=== PATIENT | female | born 1970 | race Hispanic/Latino ===

== ENCOUNTER 2018-01-05 14:17 | Emergency (ER) | payer BC ==
[2018-01-05 14:25] VITALS: BP 136/85; PULSE 68; RESP 18; TEMP 97.9; O2SAT 98; BMI 36.6
--- NOTE | 2018-01-05 15:02 | ED PDOC ---
Arrival/HPI - General Chief Complaint: Dizziness/Lightheaded Time Seen by Provider: 01/05/18 14:34 Historian: Patient - History of Present Illness Narrative History of Present Illness (Text): you were treated in the ED today for having dizziness/room spinning for about 1 week but otherwise without any nausea/vomiting/headache/current dizziness/ difficulty breathing/chest pain/abdomen pain/numbness/tingling/loss of limb function/pain with urination. 01/05/18 15:00 Time/Duration: 1 week Symptom Onset: Gradual Symptom Course: Unchanged, Resolved, Intermittent Quality: Other (no pain) Activities at Onset: Rest Context: Sitting Past Medical History - Provider Review Nursing Documentation Reviewed: Yes - Travel History Have you recently traveled outside [place] w/in the past 3 mons?: No - Infectious Disease Hx of Infectious Diseases: None - Reproductive Menopause: No - Cardiac Hx Cardiac Disorders: No - Pulmonary Hx Asthma: Yes - Neurological Hx Neurological Disorder: No - HEENT Hx HEENT Disorder: No - Renal Hx Renal Disorder: No - Endocrine/Metabolic Hx Endocrine Disorders: No - Hematological/Oncological Hx Blood Disorders: No - Integumentary Hx Dermatological Disorder: No - Musculoskeletal/Rheumatological Hx Musculoskeletal Disorders: No - Gastrointestinal Hx Gastrointestinal Disorders: No - Genitourinary/Gynecological Hx Genitourinary Disorders: No - Psychiatric Hx Psychophysiologic Disorder: Yes Hx Anxiety: Yes Hx Depression: Yes Hx Substance Use: No - Anesthesia Hx Anesthesia: Yes Hx Anesthesia Reactions: No Family/Social History - Physician Review Nursing Documentation Reviewed: Yes Family/Social History: No Known Family HX Smoking Status: Never Smoked Hx Alcohol Use: No Hx Substance Use: No Allergies/Home Meds Allergies/Adverse Reactions: Allergies No Known Allergies Allergy (Verified 01/05/18 14:49) Home Medications: Home Meds Medication Instructions Recorded Confirmed ALPRAZolam [Xanax] 1 mg PO PRN PRN 11/01/15 01/05/18 Citalopram Hydrobromide [Celexa] 40 mg PO DAILY 11/01/15 01/05/18 traZODone [Desyrel] 50 mg PO HS 11/01/15 01/05/18 Beclomethasone Dipropionate [Qvar 0 gm IH PRN PRN 01/05/18 01/05/18 Redihaler] Tiotropium Br/Olodaterol HCl 0 mg IH PRN PRN 01/05/18 01/05/18 [Stiolto Respimat Inhal [place]] Review of Systems - Review of Systems Constitutional: Normal Eyes: Normal Cardiovascular: Normal Gastrointestinal: Normal Genitourinary Female: Normal Musculoskeletal: Normal Skin: Normal Neurological: Dizziness Endocrine: Normal Hemo/Lymphatic: Normal Psychiatric: Normal Physical Exam Vital Signs Reviewed: Yes Vital Signs Temp Pulse Resp BP Pulse Ox 01/05/18 14:23 97.9 F 68 18 136/85 98 Temperature: Afebrile Blood Pressure: Hypertensive Pulse: Regular Respiratory Rate: Normal Appearance: Positive for: Well-Appearing, Non-Toxic, Comfortable Pain Distress: None Mental Status: Positive for: Alert and Oriented X 3 Finger Stick Blood Glucose: 107 - Systems Exam Head: Present: Atraumatic, Normocephalic Pupils: Present: PERRL Extroacular Muscles: Present: EOMI Conjunctiva: Present: Normal Ears: Present: Normal Mouth: Present: Moist Mucous Membranes Pharnyx: Present: Normal Nose (External): Present: Atraumatic Nose (Internal): Present: Normal Inspection Neck: Present: Normal Range of Motion Respiratory/Chest: Present: Clear to Auscultation, Good Air Exchange Cardiovascular: Present: Regular Rate and Rhythm Abdomen: No: Tenderness, Distention, Normal Bowel Sounds, Peritoneal Signs, Rebound, Guarding, McBurney's Point Tender, Rovsing's Sign Present, Hernias, Feeding Tubes, Ostomy Tubes, Mass/Organomegaly, Scars, Other Back: Present: Normal Inspection Upper Extremity: Present: Normal Inspection Lower Extremity: Present: Normal Inspection Neurological: Present: GCS=15, CN II-XII Intact, Speech Normal, Motor Func Grossly Intact Skin: Present: Warm, Normal Color Psychiatric: Present: Alert, Oriented x 3, Normal Insight, Normal Concentration Medical Decision Making ED Course and Treatment: 01/05/18 15:02 you were treated in the ED today for having dizziness/room spinning for about 1 week but otherwise without any nausea/vomiting/headache/current dizziness/ difficulty breathing/chest pain/abdomen pain/numbness/tingling/loss of limb function/pain with urination. You were otherwise breathing easily, smiling and talking with your friend, good strength/sensation, walking easily, clear lungs, no abdomen tenderness, no fever temp 97.9, stable heart rate 68, stable breathing rate 136/85, excellent oxygen level 98% room air, elevated blood pressure 136/85 which we recommend repeat in 2-3 days primary care office to determine further treatment, you have blood tests no infection count 7, stable blood level hemoglobin 14/platelets 306, stable chemistry, heart blood test negative less than 0.01, urine test negative for sign of infection, urine test negative, radiology ct head no acute findings, ECG normal sinus rhythm, meclizine, observation done in the ED with improvement, had a long conversation regarding staying in the hospital for further observation/testing but you refused and cautioned for complications/ but you stated you feel improved and wanted to followup with your primary care, counselled to monitor symptoms and thus discharged home with friend. 1. Recommend meclizine as directed for dizziness 2. Recommend follow-up primary care 2-3 days to review symptoms, referral to neurology, ear nose throat and cardiology to review your symptoms, referral to gastroenterology clinic for lab liver test mild elevation ALT 61 to ensure no complications. 4. If any worsening pain, fever, chills, nausea, vomiting, difficulty breathing, numbness, loss of limb function, pain with urination or any medical condition then return to the ED. 01/05/18 16:52 Reassessment Condition: Re-examined, Improved - Lab Interpretations Lab Results: 01/05/18 15:19 01/05/18 15:19 Lab Results 01/05/18 15:19: Sodium 140, Potassium 4.4, Chloride 105, Carbon Dioxide 28, Anion Gap 12, BUN 10, Creatinine 0.8, Est GFR ( Amer) > 60, Est GFR (Non- Af Amer) > 60, Random Glucose 112 H, Calcium 9.6, Magnesium 2.2, Total Bilirubin 0.2, AST 36, ALT 61 H, Alkaline Phosphatase 73, Lactate Dehydrogenase 520, Total Creatine Kinase 61, Troponin I < 0.01, Total Protein 7.6, Albumin 4.3 , Globulin 3.3, Albumin/Globulin Ratio 1.3 01/05/18 15:19: Urine Color Yellow, Urine Appearance Clear, Urine pH 7.0, Ur Specific [place] 1.010, Urine Protein Negative, Urine Glucose (UA) Negative, Urine Ketones Negative, Urine Blood Trace-intact H, Urine Nitrate Negative, Urine Bilirubin Negative, Urine Urobilinogen 0.2, Ur Leukocyte Esterase Negative , Urine RBC 0 - 2, Urine WBC Negative, Ur Epithelial Cells 0 - 2, Urine Bacteria Trace 01/05/18 15:19: PT 11.7, INR 1.03, APTT 33.3 01/05/18 15:19: WBC 7.0 D, RBC 4.99, Hgb 14.3, Hct 42.5, MCV 85.2, MCH 28.7, MCHC 33.6, RDW 13.7, Plt Count 306, MPV 9.3, Gran % 68.9 H, Lymph % (Auto) 21.9 L, [place] % (Auto) 5.8, Eos % (Auto) 3.0, Baso % (Auto) 0.4, Gran # 4.83, Lymph # (Auto) 1.5, [place] # (Auto) 0.4, Eos # (Auto) 0.2, Baso # (Auto) 0.03 I have reviewed the lab results: Yes - RAD Interpretation Radiology Orders: 01/05/18 14:57 HEAD W/O CONTRAST [CT] Stat [employer]: Radiologist (ct head no acute findings) - Medication Orders Current Medication Orders: Discontinued Medications Meclizine HCl (Antivert) 50 mg PO STAT STA Stop: 01/05/18 14:59 Last Admin: 01/05/18 15:35 Dose: 50 mg NIHSS Stroke Scale 3 - Date/Time Evaluation Performed Date Performed: 01/05/18 When Was NIHSS Performed: Baseline - How Severe is the Stroke Level of Consciousness: 0=Alert LOC to Questions: 0=Both comments correct LOC to commands: 0=Obeys both correctly Best Gaze: 0=Normal Visual: 0=No visual loss Facial: 0=Normal Motor Arm - Left: 0=No drift Motor Arm - Right: 0=No drift Motor Leg - Left: 0=No drift Motor Leg - Right: 0=No drift Limb Ataxia: 0=Absent Sensory: 0=Normal Best Language: 0=No aphasia Dysarthia: 0=Normal articulation Extinction & Inattention (Neglect): 0=Normal, no object Score: 0 Disposition/Present on Arrival - Present on Arrival Any Indicators Present on Arrival: No History of DVT/PE: No History of Uncontrolled Diabetes: No Urinary Catheter: No History of Decub. Ulcer: No History Surgical Site Infection Following: None - Disposition Have Diagnosis and Disposition been Completed?: Yes Diagnosis: Dizziness, Vertigo Disposition: HOME/ ROUTINE Disposition Time: 16:54 Patient Plan: Discharge Condition: IMPROVED Discharge Instructions (ExitCare): Vertigo (a Type of Dizziness) (DC) Additional Instructions: you were treated in the ED today for having dizziness/room spinning for about 1 week but otherwise without any nausea/vomiting/headache/current dizziness/ difficulty breathing/chest pain/abdomen pain/numbness/tingling/loss of limb function/pain with urination. You were otherwise breathing easily, smiling and talking with your friend, good strength/sensation, walking easily, clear lungs, no abdomen tenderness, no fever temp 97.9, stable heart rate 68, stable breathing rate 136/85, excellent oxygen level 98% room air, elevated blood pressure 136/85 which we recommend repeat in 2-3 days primary care office to determine further treatment, you have blood tests no infection count 7, stable blood level hemoglobin 14/platelets 306, stable chemistry, heart blood test negative less than 0.01, urine test negative for sign of infection, urine test negative, radiology ct head no acute findings, ECG normal sinus rhythm, meclizine, observation done in the ED with improvement, had a long conversation regarding staying in the hospital for further observation/testing but you refused and cautioned for complications/ but you stated you feel improved and wanted to followup with your primary care, counselled to monitor symptoms and thus discharged home with friend. 1. Recommend meclizine as directed for dizziness and don't work/drive/drink alcohol when using. 2. Recommend follow-up primary care 2-3 days to review symptoms, referral to neurology, ear nose throat and cardiology to review your symptoms, referral to gastroenterology clinic for lab liver test mild elevation ALT 61 to ensure no complications. 4. If any worsening pain, fever, chills, nausea, vomiting, difficulty breathing, numbness, loss of limb function, pain with urination or any medical condition then return to the ED. Prescriptions: Meclizine [Antivert] 12.5 mg PO DAILY PRN 12 Days #12 tab PRN Reason: Dizziness Referrals: Nilda Henson MD [Primary Care Provider] - Follow up with primary Forms: [employer] (Khmer)
[2018-01-05 15:52] LABS: BASO # 0.03 K/mm3 (0.0-2.0); BASO % 0.4 % (0.0-3.0); EOS # 0.2 (0.0-0.7); GRAN # 4.83 (1.4-6.5); GRAN % 68.9 % (50.0-68.0); HEMOGLOBIN 14.3 g/dL (12.0-16.0); LYMPH # 1.5 (1.2-3.4); LYMPH % 21.9 % (22.0-35.0); MEAN CELL VOLUME 85.2 fl (80.0-105.0); MEAN CORPUSCULAR HEMOGLOBIN 28.7 pg (25.0-35.0); MEAN CORPUSCULAR HGB CONC 33.6 g/dl (31.0-37.0); MEAN PLATELET VOLUME 9.3 fl (7.0-11.0); MONO # 0.4 (0.1-0.6); MONO % 5.8 % (1.0-6.0); RBC 4.99 10^6/uL (3.5-6.1); RED CELL DISTRIBUTION WIDTH 13.7 % (11.5-14.5)
[2018-01-05 15:54] LABS: URINE BILIRUBIN NEGATIVE (NEGATIVE); URINE BLOOD TRACE-INTACT (NEGATIVE); URINE GLUCOSE (UA) NEGATIVE (NEGATIVE); URINE LEUKOCYTE ESTERASE NEGATIVE Leu/uL (NEGATIVE); URINE PROTEIN NEGATIVE mg/dL (<30 mg/dL); URINE UROBILINOGEN 0.2 E.U./dL (<1 E.U./dL)
[2018-01-05 15:59] LABS: ALB/GLOB RATIO 1.3 (1.1-1.8); ALBUMIN 4.3 g/dL (3.0-4.8); ALT/SGPT 61 U/L (7-56); AST/SGOT 36 U/L (14-36); BLOOD UREA NITROGEN 10 mg/dL (7-21); CALCIUM 9.6 mg/dL (8.4-10.5); GFR AFRICAN-AMERICAN > 60; GFR NON-AFRICAN AMERICAN > 60
[2018-01-05 16:05] LABS: URINE APPEARANCE CLEAR (CLEAR); URINE COLOR YELLOW (YELLOW)
[2018-01-05 16:06] LABS: INR 1.03 (0.93-1.08); PARTIAL THROMBOPLASTIN TIME 33.3 Seconds (25.1-36.5); PROTHROMBIN TIME 11.7 SECONDS (9.4-12.5)
[2018-01-05 16:10] LABS: TROPONIN I < 0.01 ng/mL
--- NOTE | 2018-01-05 16:14 | CT ---
PROCEDURE: CT HEAD WITHOUT CONTRAST. HISTORY: 47yoF, dizziness COMPARISON: None available. TECHNIQUE: Axial computed tomography images were obtained through the head/brain without intravenous contrast. Radiation dose: Total exam DLP = 794 mGy-cm. This CT exam was performed using one or more of the following dose reduction techniques: Automated exposure control, adjustment of the mA and/or kV according to patient size, and/or use of iterative reconstruction technique. FINDINGS: HEMORRHAGE: No intracranial hemorrhage. BRAIN: No mass effect or edema. No atrophy or chronic microvascular ischemic changes. VENTRICLES: Unremarkable. No hydrocephalus. CALVARIUM: Unremarkable. PARANASAL SINUSES: Unremarkable as visualized. No significant inflammatory changes. MASTOID AIR CELLS: Unremarkable as visualized. No inflammatory changes. OTHER FINDINGS: None. IMPRESSION: No acute findings
[2018-01-05 16:17] LABS: URINE BACTERIA TRACE (NEG); URINE EPITHELIAL CELLS 0 - 2 /hpf (0-5); URINE RBC 0 - 2 /hpf (0-2); URINE WBC NEGATIVE /hpf (0-6)
--- NOTE | 2018-01-05 20:38 | CARD ---
APPROVED REPORT EKG Measurement Heart [id number] <Conclusion> Normal sinus rhythm Cannot rule out Anterior infarct, age undetermined Abnormal ECG
== END 2018-01-05 17:10 | disposition home or self-care (01) ==
LOC: ED 14:17
DX: R42 Dizziness and giddiness (principal)